=== PATIENT | female | born 1990 | race Caucasian/White ===

== ENCOUNTER 2020-02-14 06:00 | Inpatient (IN) | payer BC ==
[2020-02-14] MEDS ORDERED: CARBOPROST TROMETHAMINE 250 MCG/ML 1 ML AMP IM PRN (07:03)
[2020-02-14] MEDS ORDERED: LIDOCAINE 0.5% (PF) 5 MG/ML (50 ML SDV) SQ PRN (07:03)
[2020-02-14] MEDS ORDERED: OXYTOCIN 10 UNIT/ML 1 ML VIAL IM PRN (07:03)
[2020-02-14] MEDS ORDERED: METHYLERGONOVINE 0.2 MG/ML 1 ML AMP IM PRN (07:03)
[2020-02-14] MEDS ORDERED: TERBUTALINE 1 MG/ML VIAL SQ PRN (07:03)
[2020-02-14 07:12] VITALS: RESP 16
[2020-02-14] MEDS ORDERED: OXYTOCIN 30 UNITS/500 ML NS 30 UNIT in SALINE 1 500ML.BAG IV SCH (07:15)
[2020-02-14] MEDS: LACTATED RINGERS 1,000 ML IV SCH ×3 (07:15→15:00)
[2020-02-14 07:17] LABS: Basophils % (A) 0 %; Eosinophils # (A) 0.2 k/uL (0-0.7); Eosinophils % (A) 2 %; HCT 38.4 % (34.0-46.0); HGB 13.1 gm/dL (11.4-16.0); Lymphocytes # (A) 1.4 k/uL (1.0-4.8); Lymphocytes % (A) 17 %; MCH 33.1 pg (25.0-35.0); MCHC 34.1 g/dL (31.0-37.0); Mean Platelet Volume 9.4; Monocytes # (A) 0.5 k/uL (0-1.0); Monocytes % (A) 6 %; Neutrophils % (A) 73 %; Platelet Count 192 k/uL (150-450); RBC 3.96 m/uL (3.80-5.40); RDW 12.4 % (11.5-15.5); WBC 8.2 k/uL (3.8-10.6)
[2020-02-14] MEDS ORDERED: BUTORPHANOL 1 MG/ML 1 ML VIAL IV PRN (08:20)
--- NOTE | 2020-02-14 08:28 | P.HPOB ---
History of Present Illness H&P Date: 02/14/20 Chief Complaint: IUP @ 40 2/7 This is a pleasant 29-year-old 1 para 0 at 40-2/7 weeks with an estimated due date of 02/11. Patient has been receiving routine care with myself which has been essentially uncomplicated. Patient is admitted today for induction of labor secondary to postdates. Patient notes good movement, she denies vaginal bleeding or loss of fluid. On bloodwork patient has a blood type of a positive, rubella status immune, RPR nonreactive, hep [place] surface antigen negative, HIV negative, group beta strep negative on 01/16. Review of Systems Constitutional: Denies chills, Denies fatigue, Denies fever Ears, nose, mouth and throat: Denies headache Cardiovascular: Reports leg edema Respiratory: Denies dyspnea Gastrointestinal: Denies nausea, Denies vomiting Genitourinary: Reports Past Medical History Past Medical History: No Reported History History of Any Multi-Drug Resistant Organisms: None Reported Past Surgical History: No Surgical Hx Reported Past Anesthesia/Blood Transfusion Reactions: No Reported Reaction Past Psychological History: No Psychological Hx Reported Smoking Status: Never smoker Past Alcohol Use History: None Reported Past Drug Use History: None Reported - Past Family History Father Family Medical History: No Reported History Medications and Allergies Home Medications Medication Instructions Recorded Confirmed Type No Known Home Medications 02/14/20 02/14/20 History Allergies Allergy/AdvReac Type Severity Reaction Status Date / Time No Known Allergies Allergy Verified 02/14/20 07:03 Exam Osteopathic Statement: *. No significant issues noted on an osteopathic structural exam other than those noted in the History and Physical/Consult. 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 heart tones are reviewed and found to be category 1, and she is carroll regularly. Results Result Diagrams: 02/14/20 06:45 Assessment and Plan (1) Post-dates Current Visit: Yes Status: Acute Code(s): O48.0 - POST-TERM SNOMED Code(s): 39391075 Plan: This pleasant 29-year-old 1 para 0 at 40 and 2/sevenths weeks presents to labor and delivery for induction of labor secondary to postdates. Patient is started on IV Pitocin per hospital protocol. Patient is offered Stadol/epidural for pain relief as she progresses through labor. She will consider both. Anticipate spontaneous vaginal delivery later today.
[2020-02-14] MEDS ORDERED: ROPIVACAINE 100 MG, fentaNYL (PF) 200 MCG in SODIUM CHLORIDE 0.9% 76 ML EPIDURAL ONE (13:24)
[2020-02-14] MEDS ORDERED: HYDROcodone/APAP 5-325MG 1 EACH TAB PO PRN (20:15)
[2020-02-14] MEDS ORDERED: BENZOCAINE/MENTHOL SPRAY 1 GM/SPRAY AEROSOL TOPICAL PRN (20:15)
[2020-02-14] MEDS ORDERED: LANOLIN CREAM 5 GM TUBE TOPICAL PRN (20:15)
[2020-02-14] MEDS ORDERED: diphenhydrAMINE 25 MG CAP PO PRN (20:15)
[2020-02-14] MEDS ORDERED: SIMETHICONE 80 MG CHEWABLE PO PRN (20:15)
[2020-02-14] MEDS ORDERED: WITCH HAZEL 1 EACH MED..PAD TOPICAL PRN (20:15)
[2020-02-14] MEDS ORDERED: HYDROCORTISONE 2.5% RECTAL CREAM 30 GM TUBE RECTAL PRN (20:15)
[2020-02-14] MEDS ORDERED: diphenhydrAMINE 50 MG/ML 1 ML VIAL IVP PRN ×2 (20:15)
[2020-02-14] MEDS ORDERED: ZOLPIDEM 5 MG TAB PO PRN (20:15)
[2020-02-14] MEDS ORDERED: diphenhydrAMINE 50 MG CAP PO PRN (20:15)
[2020-02-14] MEDS ORDERED: OXYTOCIN 20 UNITS/1000 ML NS 1,000 ML IV SCH (20:15)
--- NOTE | 2020-02-14 20:19 | P.PROBDLV ---
Vaginal Delivery Note - . Vaginal Delivery Note: This pleasant 29-year-old 1 para 0 at 40-3/7 weeks presented to labor and delivery for elective induction of labor secondary to postdates. Patient was admitted to labor and delivery and was started on Pitocin induction of labor per hospital protocol. Once regular contractions were noted amniotomy was performed and clear fluid was obtained. Patient quickly became uncomfortable and requested epidural placement. Epidural was placed without difficulty by the anesthesia department. She progressed through labor eventually becoming complete began pushing and had a normal spontaneous vaginal delivery of a viable female at 1941, was delivered through the loose nuchal cord. After a two-minute delay the umbilical cord was doubly clamped and cut and the was handed off to the maternal abdomen. The placenta was then delivered spontaneously intact with a three-vessel cord being noted. On inspection the patient's vaginal vault a second-degree mediolateral laceration was noted in addition to a lateral sulcal tear. These were both repaired in the usual fashion with 3-0 Rapide. Hemostasis was appreciated afterwards. The uterus was noted to be above the umbilicus at this time after the repair therefore manual extraction multiple clots was performed. Uterus firmed up nicely and was below the umbilicus after extraction. Laceration repair sites were inspected once again and found to be hemostatic. The bladder was then drained for partially 100 mL of clear yellow urine. Estimated blood loss 400 mL, all counts were noted to be correct 2. Methergine was given after delivery secondary to uterine atony. Patient and tolerated delivery well and are resting comfortably.
[2020-02-14] MEDS: IBUPROFEN 600 MG TAB PO PRN (23:17)
[2020-02-15] MEDS: ACETAMINOPHEN TAB 325 MG TAB PO PRN ×2 (03:58→12:05)
[2020-02-15 05:46] LABS: Basophils % (A) 0 %; Eosinophils # (A) 0.2 k/uL (0-0.7); Eosinophils % (A) 1 %; HGB 10.7 gm/dL (11.4-16.0); Lymphocytes # (A) 1.2 k/uL (1.0-4.8); Lymphocytes % (A) 9 %; MCHC 33.6 g/dL (31.0-37.0); MCV 98.2 fL (80.0-100.0); Mean Platelet Volume 8.9; Monocytes # (A) 0.6 k/uL (0-1.0); Monocytes % (A) 4 %; Neutrophils # (A) 10.6 k/uL (1.3-7.7); Neutrophils % (A) 84 %; Platelet Count 172 k/uL (150-450); RBC 3.25 m/uL (3.80-5.40); RDW 12.5 % (11.5-15.5); WBC 12.7 k/uL (3.8-10.6)
[2020-02-15] MEDS: IBUPROFEN 600 MG TAB PO PRN ×2 (06:57→15:04)
[2020-02-15] MEDS ORDERED: SENNOSIDES-DOCUSATE SODIUM 1 EACH TAB PO SCH (08:00)
--- NOTE | 2020-02-15 09:02 | P.DS ---
Providers Date of admission: 02/14/20 06:20 Expected date of discharge: 02/15/20 Attending physician: Anna Cox Primary care physician: Stated None - Discharge Diagnosis(es) (1) Post-dates Current Visit: Yes Status: Acute (2) Status post normal vaginal delivery Current Visit: Yes Status: Acute (3) Second degree perineal laceration Current Visit: Yes Status: Acute Hospital Course: This is a pleasant 29-year-old 1 para 0 at 40-3/7 weeks that presented to labor and delivery on 02/13 for induction of labor secondary postdates. Patient was admitted to labor and delivery Pitocin induction of labor was begun per hospital protocol. Patient underwent amniotomy and clear fluid was obtained. Patient became uncomfortable requesting epidural placement. Patient underwent epidural placement with the anesthesia department. Patient slowly progressed to complete began pushing and had a normal spontaneous vaginal delivery of a viable female infant at 1941, of note a loose nuchal cord was delivered through. 's weight 7 lbs. 12 oz. with Apgars of 8 and 9 at one and 5 metastases respect daily. After two-minute delayed the umbilical cord was doubly clamped and cut patient did sustain a second-degree mediolateral laceration along with a vaginal sulcal tear which was repaired with 3-0 repeat in the usual fashion. Patient's course has been essentially uncomplicated, patient is involuting and voiding without difficulty. She is tolerating a regular diet without nausea or vomiting. She states her lochia is moderate. She is attempting to breast-feed. She would like discharge home at 24 hours if possible. Patient Condition at Discharge: Good Plan - Discharge Summary New Discharge Prescriptions: No Action No Known Home Medications Discharge Medication List No Known Home Medications 02/14/20 [History] Follow up Appointment(s)/Referral(s): Anna Cox DO [Doctor of Osteopathic Medicine] - 1 Week Patient Instructions/Handouts: Vaginal Delivery (GEN), Vaginal Delivery (DC) Activity/Diet/Wound Care/Special Instructions: No tub baths or intercourse until 6 weeks . Discharge Disposition: HOME SELF-CARE
[2020-02-15 16:23] VITALS: BP 116/76; PULSE 87; TEMP 97.9
== END 2020-02-15 20:10 | disposition home or self-care (01) | DRG 807 ==
LOC: 4FBP 06:20
PROVIDERS: ADMIT Obstetrics & Gynecology Obstetrics; ATTEND Obstetrics & Gynecology Obstetrics
PROC: 10E0XZZ Delivery of Products of Conception, External Approach (ICD-10-PCS; principal; 2020-02-15)
PROC: 10907ZC Drainage of Amniotic Fluid, Therapeutic from Products of Conception, Via Natural or Artificial Opening (ICD-10-PCS; principal; 2020-02-15)
PROC: 3E033VJ Introduction of Other Hormone into Peripheral Vein, Percutaneous Approach (ICD-10-PCS; principal; 2020-02-15)
PROC: 3E0R3BZ Introduction of Anesthetic Agent into Spinal Canal, Percutaneous Approach (ICD-10-PCS; principal; 2020-02-15)
PROC: 00HU33Z Insertion of Infusion Device into Spinal Canal, Percutaneous Approach (ICD-10-PCS; principal; 2020-02-15)
PROC: 0KQM0ZZ Repair Perineum Muscle, Open Approach (ICD-10-PCS; principal; 2020-02-15)
DX: O48.0 Post-term pregnancy (principal); Z37.0 Single live birth; O62.2 Other uterine inertia; O69.81X0 Labor and delivery complicated by cord around neck, without compression, not applicable or unspecified; O70.1 Second degree perineal laceration during delivery; Z3A.40 40 weeks gestation of pregnancy
CPT/HCPCS: 85025; 86850; 86900; 86901

== ENCOUNTER 2021-12-18 06:00 | Inpatient (IN) | payer OTHER ==
[2021-12-18] MEDS ORDERED: CARBOPROST TROMETHAMINE 250 MCG/ML 1 ML AMP IM PRN (06:41)
[2021-12-18] MEDS ORDERED: OXYTOCIN 10 UNIT/ML 1 ML VIAL IM PRN (06:41)
[2021-12-18] MEDS ORDERED: LIDOCAINE 1% (PF) 10 MG/ML (30 ML SDV) SQ PRN (06:41)
[2021-12-18] MEDS ORDERED: TERBUTALINE 1 MG/ML VIAL SQ PRN (06:41)
[2021-12-18] MEDS ORDERED: METHYLERGONOVINE 0.2 MG/ML 1 ML AMP IM PRN (06:41)
[2021-12-18] MEDS ORDERED: OXYTOCIN 30 UNITS/500 ML NS 30 UNIT in SALINE 1 500ML.BAG IV SCH ×2 (06:45→19:30)
[2021-12-18] MEDS: LACTATED RINGERS 1,000 ML IV SCH ×3 (06:49→15:10)
[2021-12-18 07:02] LABS: Basophils # (A) 0.1 k/uL (0-0.2); Basophils % (A) 1 %; Eosinophils # (A) 0.2 k/uL (0-0.7); Eosinophils % (A) 3 %; HCT 34.5 % (34.0-46.0); HGB 11.1 gm/dL (11.4-16.0); Lymphocytes # (A) 1.5 k/uL (1.0-4.8); Lymphocytes % (A) 21 %; MCH 30.2 pg (25.0-35.0); MCHC 32.1 g/dL (31.0-37.0); MCV 94.2 fL (80.0-100.0); Mean Platelet Volume 9.5; Monocytes # (A) 0.4 k/uL (0-1.0); Monocytes % (A) 6 %; Neutrophils # (A) 4.5 k/uL (1.3-7.7); Neutrophils % (A) 66 %; Platelet Count 219 k/uL (150-450); RBC 3.66 m/uL (3.80-5.40); RDW 13.6 % (11.5-15.5); WBC 6.8 k/uL (3.8-10.6)
--- NOTE | 2021-12-18 14:49 | P.HPOB ---
History of Present Illness H&P Date: 12/18/21 Chief Complaint: IUP at 39 and one sevenths weeks This is a 31-year-old 3 para 1011 at 39 and one sevenths weeks, EDC of 12/24 that presents to labor and delivery for elective induction of labor. Patient has been receiving routine care which has been essentially uncomplicated. Patient did have a positive cocaine infection in July 2021. Patient does note good movement denies contractions vaginal bleeding or loss of fluid. On bloodwork this patient is a blood type of A+, rubella status immune, hepatitis B surface antigen negative, HIV negative, group beta strep culture negative. Review of Systems Constitutional: Denies chills, Denies fatigue, Denies fever Ears, nose, mouth and throat: Denies headache Cardiovascular: Reports leg edema Respiratory: Denies dyspnea Gastrointestinal: Denies constipation, Denies diarrhea, Denies nausea, Denies vomiting Genitourinary: Reports Past Medical History Past Medical History: No Reported History History of Any Multi-Drug Resistant Organisms: None Reported Past Surgical History: No Surgical Hx Reported Additional Past Surgical History / Comment(s): Diverticulum on bladder, sx at 18 years of age Past Anesthesia/Blood Transfusion Reactions: No Reported Reaction Past Psychological History: No Psychological Hx Reported Smoking Status: Never smoker Past Alcohol Use History: None Reported Past Drug Use History: None Reported - Past Family History Father Family Medical History: No Reported History Medications and Allergies Home Medications Medication Instructions Recorded Confirmed Type Pnv No.95/Ferrous Fum/Folic AC 1 tablet PO DAILY 12/18/21 12/18/21 History [ Multivitamin Tablet] Allergies Allergy/AdvReac Type Severity Reaction Status Date / Time No Known Allergies Allergy Verified 12/18/21 06:40 Exam Osteopathic Statement: *. No significant issues noted on an osteopathic structural exam other than those noted in the History and Physical/Consult. Vital Signs Temp Pulse Resp BP Pulse Ox 12/18/21 06:25 97.7 F 100 17 119/66 99 Intake and Output 12/17/21 12/18/21 12/18/21 22:59 06:59 14:59 Other: Weight 71.214 kg Targeted physical exam is performed and state in general this a well-nourished well-developed female in no acute distress, breathing is nonlabored, heart has a regular rate and rhythm, abdomen is gravid and appropriate for gestational age, on cervical exam she is 3/70/-2 station, amniotomy is performed and clear fluid was obtained. heart tones returned be category 1 and she is carroll every 5 minutes. Results Result Diagrams: 12/18/21 06:45 Abnormal Lab Results - Last 24 Hours (Table) 12/18/21 Range/Units 06:45 RBC 3.66 L (3.80-5.40) m/uL Hgb 11.1 L (11.4-16.0) gm/dL Assessment and Plan (1) Term Current Visit: Yes Status: Acute Code(s): Z34.90 - ENCNTR FOR SUPRVSN OF NORMAL , UNSP, UNSP TRIMESTER SNOMED Code(s): 74589937 Plan: 31-year-old 3 para 1011 at 39 and one sevenths weeks that presents for elective induction of labor. Patient is admitted to labor and delivery and Pitocin induction of labor is begun. Patient is offered analgesic options including Stadol and epidural. Patient will consider. Anticipate spontaneous vaginal delivery later today.
[2021-12-18] MEDS ORDERED: BENZOCAINE/MENTHOL SPRAY 1 GM/SPRAY AEROSOL TOPICAL PRN (19:27)
[2021-12-18] MEDS ORDERED: diphenhydrAMINE 50 MG/ML 1 ML VIAL IVP PRN ×2 (19:27)
[2021-12-18] MEDS ORDERED: LANOLIN CREAM 5 GM TUBE TOPICAL PRN (19:27)
[2021-12-18] MEDS ORDERED: ZOLPIDEM 5 MG TAB PO PRN (19:27)
[2021-12-18] MEDS ORDERED: SIMETHICONE 80 MG CHEWABLE PO PRN (19:27)
[2021-12-18] MEDS ORDERED: HYDROCORTISONE 2.5% RECTAL CREAM 30 GM TUBE RECTAL PRN (19:27)
[2021-12-18] MEDS ORDERED: diphenhydrAMINE 50 MG CAP PO PRN (19:27)
[2021-12-18] MEDS ORDERED: diphenhydrAMINE 25 MG CAP PO PRN (19:27)
--- NOTE | 2021-12-18 20:26 | P.PROBDLV ---
Vaginal Delivery Note - . Vaginal Delivery Note: This is a 31-year-old 011 at 39 and one sevenths weeks that presented to labor and delivery this morning for elective induction of labor. Patient was admitted to labor and delivery and Pitocin induction of labor was begun. Patient underwent amniotomy when regular contractions were appreciated and clear fluid was obtained. Patient progressed through labor eventually becoming uncomfortable and requesting epidural placement. Patient progressed to complete and began pushing. A shunt brought the head down to a large , and with excellent maternal effort she had delivery of the head followed by the anterior and posterior shoulders. was then placed on the maternal abdomen. A spontaneous cry was noted at . After two-minute delayed the umbilical cord was doubly clamped and cut. The placenta was then delivered spontaneously intact with a three-vessel cord being noted. On inspection the patient's vaginal vault a first-degree vaginal laceration was appreciated. This was repaired in usual fashion with 3-0 Rapide. Hemostasis was appreciated after repair. Uterus is noted to be firm and below the umbilicus after delivery. All counts were noted to be correct 2 at the end of the delivery. Patient and infant tolerated delivery well and are resting comfortably.
[2021-12-18] MEDS: SENNOSIDES-DOCUSATE SODIUM 1 EACH TAB PO SCH (20:38)
[2021-12-18] MEDS: IBUPROFEN 600 MG TAB PO SCH (20:38)
[2021-12-19] MEDS: ACETAMINOPHEN TAB 325 MG TAB PO PRN ×4 (00:10→20:31)
[2021-12-19] MEDS: IBUPROFEN 600 MG TAB PO SCH ×4 (04:10→18:28)
[2021-12-19] MEDS: SENNOSIDES-DOCUSATE SODIUM 1 EACH TAB PO SCH ×2 (07:50→20:58)
--- NOTE | 2021-12-19 08:09 | P.DS ---
Providers Date of admission: 12/18/21 06:16 Expected date of discharge: 12/19/21 Attending physician: Anna Cox Primary care physician: Stated None - Discharge Diagnosis(es) (1) Term Current Visit: Yes Status: Acute (2) Obstetric vaginal laceration with first degree perineal laceration Current Visit: Yes Status: Acute (3) Status post normal vaginal delivery Current Visit: No Status: Acute Hospital Course: This is a 31-year-old 011 that presented to labor and delivery yesterday at 39 and one sevenths weeks for a elective induction of labor. Patient has been receiving routine care which is been essentially uncomplicated. Patient did have a COVID-19 infection August 2021. Patient had been receiving testing with growth ultrasounds and NSTs weekly since 32 weeks of preg [place]. Patient was admitted to labor and delivery and Pitocin induction of labor was begun. Patient underwent amniotomy and clear fluid was noted. Patient progressed through labor eventually becoming uncomfortable and requesting epidural placement. Epidural was placed without difficulty by the anesthesia department. Patient progressed to complete began pushing and had a normal spontaneous vaginal delivery of a viable female at 1903, weight of 7 lbs. 4 oz. Patient did sustain a first degree vaginal laceration which was repaired with 3-0 Rapide. Patient's course has been uneventful. On this day #1 she is ambulating and voiding without difficulty. She is tolerating a regular diet without nausea or vomiting. She states her pain is well-controlled. Her lochia is minimal, she is breast-feeding without difficulty. Patient Condition at Discharge: Good Plan - Discharge Summary New Discharge Prescriptions: No Action Pnv No.95/Ferrous Fum/Folic AC [ Multivitamin Tablet] 1 tablet PO DAILY Discharge Medication List Pnv No.95/Ferrous Fum/Folic AC [ Multivitamin Tablet] 1 tablet PO DAILY 12/18/21 [History] Follow up Appointment(s)/Referral(s): Anna Cox DO [Doctor of Osteopathic Medicine] - 4 Weeks Patient Instructions/Handouts: Vaginal Delivery (DC), Vaginal Delivery (GEN) Discharge Disposition: HOME SELF-CARE
[2021-12-19 08:21] VITALS: RESP 18
[2021-12-19] MEDS ORDERED: PRENATAL VIT-IRON-FOLIC ACID 1 EACH CAP PO SCH (09:00)
[2021-12-19 15:56] VITALS: BP 97/69; PULSE 94; TEMP 98.7
== END 2021-12-19 20:25 | disposition home or self-care (01) | DRG 807 ==
LOC: 4FBP 06:16
PROVIDERS: ADMIT Obstetrics & Gynecology Obstetrics; ATTEND Obstetrics & Gynecology Obstetrics
PROC: 10E0XZZ Delivery of Products of Conception, External Approach (ICD-10-PCS; principal; 2021-12-18)
PROC: 0HQ9XZZ Repair Perineum Skin, External Approach (ICD-10-PCS; 2021-12-18)
PROC: 10907ZC Drainage of Amniotic Fluid, Therapeutic from Products of Conception, Via Natural or Artificial Opening (ICD-10-PCS; 2021-12-18)
PROC: 3E033VJ Introduction of Other Hormone into Peripheral Vein, Percutaneous Approach (ICD-10-PCS; 2021-12-18)
PROC: 4A0HXCZ Measurement of Products of Conception, Cardiac Rate, External Approach (ICD-10-PCS; 2021-12-18)
DX: O70.0 First degree perineal laceration during delivery (principal); Z37.0 Single live birth; Z3A.39 39 weeks gestation of pregnancy; Z86.16 Personal history of COVID-19
CPT/HCPCS: 85025; 86850; 86900; 86901